=== PATIENT | female | born 1955 | race Hispanic/Latino ===

== ENCOUNTER → 2019-03-15 | Outpatient (CLI) | payer OTHER | END | disposition home or self-care (01) | LOC: OIH 08:52 | PROVIDERS: ATTEND Family Medicine | DX: M51.35 Other intervertebral disc degeneration, thoracolumbar region (principal); M50.30 Other cervical disc degeneration, unspecified cervical region; M19.012 Primary osteoarthritis, left shoulder; M19.011 Primary osteoarthritis, right shoulder; M19.032 Primary osteoarthritis, left wrist; M19.031 Primary osteoarthritis, right wrist; I10 Essential (primary) hypertension | CPT/HCPCS: 71046; 72040; 73030; 73110 ==